=== PATIENT | male | born 1985 | race American Indian/Alaskan Native ===

== ENCOUNTER 2017-05-22 08:19 | Inpatient (IN) | payer SELFPAY ==
[2017-05-22 08:49] LABS: Basophils % (Auto) 0.5 % (0.0-1.8); Eosinophils # (Auto) 0.3 K/mm3 (0.0-0.4); Eosinophils % (Auto) 3.4 % (0.0-4.3); Hematocrit 42.2 % (35.5-45.6); Hemoglobin 13.9 gm/dl (11.8-15.2); Lymphocytes # (Auto) 1.3 K/mm3 (1.2-5.4); Lymphocytes % (Auto) 16.3 % (13.4-35.0); Mean Corpuscular HGB Conc 33 % (32-34); Mean Corpuscular Volume 77 fl (84-94); Monocytes # (Auto) 0.8 K/mm3 (0.0-0.8); Monocytes % (Auto) 9.4 % (0.0-7.3); Platelet Count 247 K/mm3 (140-440); Red Blood Count 5.52 M/mm3 (3.65-5.03); Red Cell Distribution Width 14.4 % (13.2-15.2)
[2017-05-22 08:51] LABS: Bilirubin,Urine NEG (Negative); Blood,Urine MOD (Negative); Color,Urine Straw (Yellow); Mucus,Urine FEW /HPF; Protein,Urine <15 mg/dL mg/dL (Negative); Urobilinogen,Urine < 2.0 mg/dL (<2.0)
[2017-05-22 08:55] LABS: Mean Corpuscular Hemoglobin 25 pg (28-32)
--- NOTE | 2017-05-22 09:03 | Emergency Department Report ---
ED Abdominal Pain HPI - General Chief Complaint: Abdominal Pain Stated Complaint: LEFT FLANK PAIN Time Seen by Provider: 05/22/17 08:46 Source: patient Mode of arrival: Ambulatory Limitations: No Limitations - History of Present Illness Initial Comments: This is a 31 y.o. male that presents with left flank pain for 4 days. He have a history or kidney stones. Patient reports this pain is staying on left side and not radiating like the last 2 times he had kidney stones. He reports pain currently as 8/10 on pain scale and intermittent. Pain is sharp and 10/10 that last for 10 minutes intermittently. He is drinking increased amounts of water and lemon juice. States he read somewhere to increase lemon juice intake with active stones. Nothing is helping symptoms at this time. Denies dysuria, frequency, urgency, hematuria, nausea, vomiting, or chest pain. MD Complaint: flank pain (left) -: days(s) (4) Location: L flank Radiation: none Migration to: no migration Severity: severe Severity scale (0 -10): 8 Quality: aching, sharp Consistency: intermittent Improves With: nothing Worsens With: movement Associated Symptoms: denies other symptoms - Related Data Home Medications Medication Instructions Recorded Confirmed Last Taken No Known Home Medications [No 05/22/17 05/22/17 Unknown Reported Home Medications] Allergies Allergy/AdvReac Type Severity Reaction Status Date / Time No Known Allergies Allergy Unverified 05/22/17 08:26 ED Review of Systems ROS: Stated complaint: LEFT FLANK PAIN Other details as noted in HPI Constitutional: denies: chills, fever Respiratory: denies: cough, shortness of breath, wheezing Cardiovascular: denies: chest pain, palpitations, dyspnea on exertion, syncope Gastrointestinal: denies: abdominal pain, nausea, vomiting, diarrhea, constipation Musculoskeletal: myalgia (left flank pain). denies: back pain, joint swelling, arthralgia Skin: denies: rash, lesions Neurological: denies: headache, weakness, paresthesias Psychiatric: denies: anxiety, depression ED Past Medical Hx - Past Medical History Previous Medical History?: Yes Hx Kidney Stones: Yes ("I usually pass them") - Surgical History Past Surgical History?: No - Social History Smoking Status: Current Some Day Smoker Substance Use Type: Alcohol, Marijuana - Medications Home Medications: Home Medications Medication Instructions Recorded Confirmed Last Taken Type No Known Home Medications [No 05/22/17 05/22/17 Unknown History Reported Home Medications] ED Physical Exam - General Limitations: No Limitations General appearance: alert, in no apparent distress - Respiratory Respiratory exam: Present: normal lung sounds bilaterally. Absent: respiratory distress, wheezes, rales, stridor, accessory muscle use - Cardiovascular Cardiovascular Exam: Present: regular rate, normal rhythm, normal heart sounds. Absent: systolic murmur, diastolic murmur, rubs, gallop - GI/Abdominal GI/Abdominal exam: Present: soft, normal bowel sounds. Absent: distended, tenderness, guarding, rebound, rigid, organomegaly, mass - Extremities Exam Extremities exam: Present: normal inspection - Back Exam Back exam: Present: normal inspection, full ROM, CVA tenderness (L). Absent: tenderness, CVA tenderness (R), muscle spasm, paraspinal tenderness, vertebral tenderness, rash noted - Neurological Exam Neurological exam: Present: alert, oriented X3, normal gait - Psychiatric Psychiatric exam: Present: normal affect, normal mood - Skin Skin exam: Present: warm, dry, intact, normal color. Absent: rash ED Course Vital Signs 05/22/17 05/22/17 05/22/17 08:26 11:13 11:50 Temperature 98.7 F Pulse Rate 65 60 Respiratory 18 18 18 Rate Blood Pressure 136/95 Blood Pressure 115/61 [Right] O2 Sat by Pulse 100 100 100 Oximetry 05/22/17 12:16 Temperature Pulse Rate 71 Respiratory Rate Blood Pressure 149/86 Blood Pressure [Right] O2 Sat by Pulse 100 Oximetry ED Medical Decision Making - Lab Data Result diagrams: 05/22/17 08:37 05/22/17 08:37 - Radiology Data Radiology results: report reviewed This is a 31 y.o. male presents with left flank pain for 5 days. Patient was examined by me. Vitals are stable and no distress noted. Obtained CBC, CMP, UA, & CT of abdomen and pelvis. CT of abdomen and pelvic: Obstructing mid left ureteral stones. Bilateral renal stones. No right hydronephrosis. Right retrocrural lesion is nonspecific. Differential diagnosis includes extramedullary hematopoiesis, enlarged lymph node, lymphocele. Cystic tumor, or metastatic disease. Wall thickening and stranding around the perirectal region with a few mildly prominent perirectal lymph nodes. Findings may represent inflammation or malignancy. Further evaluation with sigmoidoscopy or colonoscopy may be helpful if clinically indicated. Patient informed of results. Consulted with Dr. March and advised to f/u with Gastro and hospitalist for possible admission. Consulted with MIAN Fish for Gastroenterolgoy and decision to admit. Plan discussed with patient. He agrees with ER plan. He is awaiting admission bed. Critical care attestation.: If time is entered above; I have spent that time in minutes in the direct care of this critically ill patient, excluding procedure time. ED Disposition Clinical Impression: Kidney stones, Lesion of male perineum Disposition: OP ADMIT IP TO THIS HOSP Is pt being admited?: Yes Condition: Stable Referrals: PRIMARY CARE, [Primary Care Provider] - 3-5 Days
[2017-05-22 09:07] LABS: Alanine Aminotransferase 8 units/L (7-56); Albumin 3.8 g/dL (3.9-5); BUN/Creatinine Ratio 9; Blood Urea Nitrogen 13 mg/dL (9-20); Calcium 9.1 mg/dL (8.4-10.2); Hemolysis Index 4
--- NOTE | 2017-05-22 10:21 | Cat Scan Report ---
FINAL REPORT EXAM: CT ABDOMEN PELVIS WO CON HISTORY: left flank pain, +LLQ, r/o kidney stones, hx TECHNIQUE: CT of the abdomen and pelvis without IV contrast. Coronal and sagittal reconstructed imaging provided. PRIORS: None currently available. FINDINGS: ABDOMEN: Kidneys: 3.5 mm stone upper right kidney. Punctate 1-3 mm stones mid and inferior right kidney. Punctate 1-2 mm stones in the mid and inferior left kidney. No hydronephrosis. No right ureteral stones. At the L4-L5 level, 2 mid left ureteral stones causes [id number] hydronephrosis and hydroureter. More superior stone measures 0.3 x 4.2 mm. More inferior stone measures 3.8 x 5.2 mm. Liver, gallbladder, stomach, spleen, pancreas, and adrenals are unremarkable. IVC is intact. No aortic aneurysm or dissection. Right retrocrural lesion on series 2:51 measures 48.8 x 67.4 x 79.5 mm and is well-defined with cystic attenuation. No bony destruction. No invasion or extension from or into the neural foramina or spinal canal. Displacement of the crural portion of the diaphragm. Otherwise, no periaortic or retroperitoneal mass or adenopathy. Notable wall thickening and inflammation around the perirectal region on series 2:153 wall measures 10 mm. A few mildly pop prominent perirectal lymph nodes identified. [id number] stool in the remainder of the colon without other areas of focal wall thickening or inflammatory changes. Terminal ilium is unremarkable. Appendix is normal. Small bowel loops are unremarkable. No obstructive pattern. No free air. No free fluid. Fat containing umbilical hernia. No strangulation. Mesentery is unremarkable. No stranding. No adenopathy. PELVIS: Bladder is unremarkable. Perirectal findings discussed above. No distinct mass. Subcentimeter mildly prominent right and left inguinal lymph nodes measure respectively 6.7 and 5.6 mm. Bones: No suspicious osseous lesions on this limited examination of the skeleton. Metastatic disease better evaluated with bone scan. Degenerative changes are in the spine. IMPRESSION: Obstructing mid left ureteral stones. Bilateral renal stones. No right hydronephrosis. Right retrocrural lesion is nonspecific. Differential diagnosis includes extramedullary hematopoiesis, enlarged lymph node, lymphocele. Cystic tumor, or metastatic disease. Wall thickening and stranding around the perirectal region with a few mildly prominent perirectal lymph nodes. Findings may represent inflammation or malignancy. Further evaluation with sigmoidoscopy or colonoscopy may be helpful if clinically indicated.
[2017-05-22] MEDS ORDERED: TORADOL IV ONE (10:32)
[2017-05-22] MEDS ORDERED: ZOFRAN IV ONE (10:32)
[2017-05-22] MEDS ORDERED: NACL 0.9% 1000 ML 1,000 ML IV ONE (10:32)
--- NOTE | 2017-05-22 11:51 | Gastroenterology Consultation ---
History of Present Illness - Reason for Consult Consult date: 05/22/[address] scan Requesting physician: MERCEDES PANIAGUA - History of Present Illness Patient is a 31 y/o male with PMH of kidney stones that presented to ED with c/ o left flank pain x [address] showed mid left ureteral stones, bilateral renal stones, and wall thickening and stranding around the perirectal region with a few mildly prominent perirectal lymph nodes to which GI has been consulted. This morning pt was sitting up in chair w/o acute distress. Reports left flank pain is improved. Admits to scant amount of rectal bleeding of bright red blood on TP after BMs x 2-3 months. No rectal pain or pain with defecation. Denies fever, wt loss, CP, SOB, dizziness, abd pain, N/V, hematemesis, melena, diarrhea, constipation, or change in bowel habit. No hx of IBD or Fhx of colon cancer. No previous colonoscopy. Past History Past Medical History: other (kidney stones) Past Surgical History: No surgical history Social history: smoking, alcohol abuse, other (marijuana) Family history: no significant family history Medications and Allergies Allergies Allergy/AdvReac Type Severity Reaction Status Date / Time No Known Allergies Allergy Unverified 05/22/17 08:26 Home Medications Medication Instructions Recorded Confirmed Last Taken Type No Known Home Medications [No 05/22/17 05/22/17 Unknown History Reported Home Medications] Review of Systems - Review of Systems All systems: negative Gastrointestinal: abdominal pain (left flank pain), hematochezia Exam - Constitutional Vital Signs: Temp Pulse Resp BP Pulse Ox 98.7 F 65 18 136/95 100 05/22/17 08:26 05/22/17 08:26 05/22/17 11:13 05/22/17 08:26 05/22/17 11:13 General appearance: no acute distress, well-nourished - EENT Eyes: PERRL, EOM intact ENT: hearing intact - Respiratory Respiratory: bilateral: CTA - Cardiovascular Rhythm: regular Heart Sounds: Present: S1 & S2 - Gastrointestinal General gastrointestinal: Present: soft, non-tender, non-distended, normal bowel sounds - Integumentary Integumentary: Present: warm, dry - Neurologic Neurological: alert and oriented x3 - Labs CBC & Chem 7: 05/22/17 08:37 05/22/17 08:37 Lab Results: Laboratory Results - last 24 hr 05/22/17 05/22/17 05/22/17 08:33 08:37 08:37 WBC 8.1 RBC 5.52 H Hgb 13.9 Hct 42.2 MCV 77 L MCH 25 L MCHC 33 RDW 14.4 Plt Count 247 Lymph % (Auto) 16.3 [place] % (Auto) 9.4 H Eos % (Auto) 3.4 Baso % (Auto) 0.5 Lymph # 1.3 [place] # 0.8 Eos # 0.3 Baso # 0.0 Seg Neutrophils % 70.4 H Seg Neutrophils # 5.7 Sodium 135 L Potassium 4.3 Chloride 100.6 Carbon Dioxide 22 Anion Gap 17 BUN 13 Creatinine 1.4 Estimated GFR > 60 BUN/Creatinine Ratio 9 Glucose 96 Calcium 9.1 Total Bilirubin 0.90 AST 11 ALT 8 Alkaline Phosphatase 72 Total Protein 8.0 Albumin 3.8 L Albumin/Globulin Ratio 0.9 Urine Color Straw Urine Turbidity Clear Urine pH 6.0 Ur Specific [place] 1.004 Urine Protein <15 mg/dl Urine Glucose (UA) Neg Urine Ketones Tr Urine Blood Mod Urine Nitrite Neg Urine Bilirubin Neg Urine Urobilinogen < 2.0 Ur Leukocyte Esterase Neg Urine WBC (Auto) 1.0 Urine RBC (Auto) 2.0 Urine Mucus Few Assessment and Plan 1.abnormal CT 2.hematochezia 3.kidney stones -H/H stable (13.9/42.2) -continue to monitor H/H and transfuse as needed -no active signs of bleeding- HD stable -abd CT showed wall thickening and stranding around the perirectal region with a few mildly prominent perirectal lymph nodes -etiology unclear- possible inflammation vs malignancy vs other -will schedule a colonoscopy for further evaluation in am -clear liquids today then NPO MN -HIV and INR in am -continue supportive care -will follow
[2017-05-22 12:30] VITALS: BP 149/86
--- NOTE | 2017-05-22 13:00 | History and Physical Report ---
History of Present Illness Chief complaint: My side hurts History of present illness: 31 YO Male with Nicotine Dependence, Nephrolithiasis, presents to ED for evaluation. Pt states that he has experienced pain in his left flank for the past 4 days with worsening symptoms over the past 1 day. Pt states that pain is 8/10, sharp, intermittent, worse with movement, relieved with non movement. Pt seen and evaluated in ED and underwent CT Abdomen/Pelvis which revealed an obstructing L uretic stone, as well as a very large retrocrural abscess/mass. Pt denies fever, chills, CP, Palpitations, NVD, Syncope, BRBPR, unintentional weight loss, night sweats, bone pain, productive cough, recent ill contacts. Past History Past Medical History: other (kidney stones) Past Surgical History: No surgical history Social history: smoking, alcohol abuse, other (marijuana) Family history: no significant family history Medications and Allergies Allergies Allergy/AdvReac Type Severity Reaction Status Date / Time No Known Allergies Allergy Unverified 05/22/17 08:26 Home Medications Medication Instructions Recorded Confirmed Last Taken Type No Known Home Medications [No 05/22/17 05/22/17 Unknown History Reported Home Medications] Active Meds: Active Medications Polyethylene Glycol/Electrolytes (Golytely) 4,000 ml PO ONCE ONE Stop: 05/22/17 14:01 Review of Systems Constitutional: no weight loss, no weight gain, no fever, no chills Ears, nose, mouth and throat: no ear pain, no ear discharge, no tinnitis, no decreased hearing, no nose pain, no nasal congestion Cardiovascular: no chest pain, no orthopnea, no palpitations, no rapid/ irregular heart beat, no edema, no syncope Respiratory: no cough, no cough with sputum, no excessive sputum, no hemoptysis , no shortness of breath Gastrointestinal: no abdominal pain, no nausea, no vomiting, no diarrhea Genitourinary Male: flank pain, no urinary frequency, no urinary hesitancy, no nocturia, no incontinence Rectal: no pain Musculoskeletal: no neck stiffness, no neck pain Integumentary: no rash, no pruritis, no redness, no sores, no wounds, no jaundice Neurological: no transient paralysis, no paralysis, no weakness, no parathesias , no numbness, no tingling, no syncope Psychiatric: no anxiety, no memory loss, no change in sleep habits, no sleep disturbances, no insomnia, no hypersomnia, no change in appetite, no change in libido Endocrine: no cold intolerance, no heat intolerance, no polyphagia, no excessive thirst, no polydipsia, no polyuria, no nocturia, no excessive sweating Hematologic/Lymphatic: no easy bruising, no easy bleeding, no lymphadenopathy, no lymphedema Allergic/Immunologic: no urticaria, no allergic rhinitis, no wheezing, no persistent infections, no anaphylaxis Exam - Constitutional Vitals: Temp Pulse Resp BP Pulse Ox 98.7 F 71 18 149/86 100 05/22/17 08:26 05/22/17 12:16 05/22/17 11:50 05/22/17 12:16 05/22/17 12:16 General appearance: Present: no acute distress, well-nourished - EENT Eyes: Present: PERRL ENT: hearing intact, clear oral mucosa - Neck Neck: Present: supple, normal ROM - Respiratory Respiratory effort: normal Respiratory: bilateral: CTA - Cardiovascular Heart Sounds: Present: S1 & S2. Absent: rub, click - Extremities Extremities: pulses symmetrical, No edema Peripheral Pulses: within normal limits - Abdominal General gastrointestinal: Present: soft, non-tender, non-distended, normal bowel sounds Male genitourinary: Present: normal - Integumentary Integumentary: Present: clear, warm, dry - Musculoskeletal Musculoskeletal: gait normal, strength equal bilaterally - Psychiatric Psychiatric: appropriate mood/affect, intact judgment & insight - Neurologic Neurologic: CNII-XII intact, moves all extremities Results - Labs CBC & Chem 7: 05/22/17 08:37 05/22/17 08:37 Labs: Abnormal lab results 05/22/17 05/22/17 Range/Units 08:37 08:37 RBC 5.52 H (3.65-5.03) M/mm3 MCV 77 L (84-94) fl MCH 25 L (28-32) pg [place] % (Auto) 9.4 H (0.0-7.3) % Seg Neutrophils % 70.4 H (40.0-70.0) % Sodium 135 L (137-145) mmol/L Albumin 3.8 L (3.9-5) g/dL Assessment and Plan - Patient Problems (1) Rectal mass Current Visit: Yes Status: Acute Plan to address problem: GI consulted in ED, Pt to be NPO after midnight, Pt to OR in AM for endoscopic evaluation. (2) Urinary obstruction Current Visit: Yes Status: Acute Plan to address problem: CT Abdomen pelvis, monitor uop q shift, flomax, strain all urine, supportive care. (3) Nicotine dependence Current Visit: Yes Status: Acute Qualifiers: Substance use status: in withdrawal Plan to address problem: supportive care. Pt refused to pick quit date. (4) DVT prophylaxis Current Visit: Yes Status: Acute Plan to address problem: scd to ble while in bed.
[2017-05-22] MEDS ORDERED: PERCOCET 5/325 PO PRN (13:50)
[2017-05-22] MEDS ORDERED: ZOFRAN IV PRN (13:50)
[2017-05-22] MEDS ORDERED: TYLENOL PO PRN (13:50)
[2017-05-22] MEDS ORDERED: SODIUM CHLORIDE FLUSH SYRINGE 10 ML IV PRN (13:50)
[2017-05-22] MEDS ORDERED: PROVENTIL IH PRN (13:50)
[2017-05-22] MEDS ORDERED: GOLYTELY PO ONE (14:00)
--- NOTE | 2017-05-22 19:58 | Event Note ---
Date: 05/22/17 Pt absconded. Several attempts to reach patient by phone were unsuccessful.
[2017-05-22] MEDS ORDERED: SODIUM CHLORIDE FLUSH SYRINGE 10 ML IV SCH (22:00)
[2017-05-23] MEDS ORDERED: NACL 0.9% 1000 ML 1,000 ML IV SCH (11:00)
== END 2017-05-22 15:00 | disposition left against medical advice (07) | DRG 699 ==
LOC: ED 08:19 → 3A 13:50
PROVIDERS: ADMIT Internal Medicine; ATTEND Internal Medicine
DX: N13.9 Obstructive and reflux uropathy, unspecified (principal); K92.1 Melena; K62.89 Other specified diseases of anus and rectum; N20.0 Calculus of kidney; F17.200 Nicotine dependence, unspecified, uncomplicated; F12.90 Cannabis use, unspecified, uncomplicated; Z87.442 Personal history of urinary calculi; Z72.89 Other problems related to lifestyle
CPT/HCPCS: 36415; 74176; 80053; 81001; 85025; 96374; 96375; J1885; J2405; J7030